=== PATIENT | female | born 1980 | race Caucasian/White ===

== ENCOUNTER 2023-07-18 22:37 | Observation (INO) ==
[2023-07-18] MEDS ORDERED: IOPAMIDOL 100 ML BOTTLE IV ONE (22:38)
[2023-07-18] MEDS ORDERED: FAMOTIDINE/PF 20 MG/2 ML VIAL IV ONE (22:44)
[2023-07-18] MEDS ORDERED: 0.9 % SODIUM CHLORIDE 1,000 ML IV ONE (22:44)
[2023-07-18] MEDS ORDERED: fentaNYL 100 MCG/2 ML VIAL IV ONE (22:47)
[2023-07-18 23:20] LABS: POC Calcium, Ionized 1.17 (1.16-1.32); POC Creatinine 0.8 (0.6-1.2); POC Potassium 3.6 (3.3-5.1)
[2023-07-18] MEDS: ONDANSETRON 4 MG/2 ML VIAL IV PRN (23:22)
[2023-07-18 23:27] LABS: Basophils # (Auto) 0.02 K/mcL (0.00-0.30); Basophils % (Auto) 0.2 % (0.0-2.0); Eosinophils # (Auto) 0.13 K/mcL (0.00-0.70); Eosinophils % (Auto) 1.5 % (0.0-7.0); Hematocrit 40.4 % (34.1-44.9); Lymphocytes # (Auto) 1.14 K/mcL (1.50-4.80); Lymphocytes % (Auto) 12.9 % (15.5-49.0); Mean Cell Volume 91.6 fL (80.0-100.0); Mean Corpuscular HGB Conc 34.7 g/dL (31.0-36.0); Mean Platelet Volume 10.2 fL (8.8-12.5); Monocytes # (Auto) 0.61 K/mcL (0.10-0.90); Monocytes % (Auto) 6.9 % (1.0-12.0); Neutrophils % (Auto) 78.3 % (38.0-78.0); Platelet Count 241 K/mcL (140-440); RBC 4.41 M/mcL (3.59-5.38); WBC 8.8 K/mcL (4.5-11.0)
[2023-07-19 00:09] LABS: ALT/SGPT 89 U/L (<40); AST/SGOT 206 U/L (<32); Albumin 3.9 gm/dL (3.2-5.2); Alkaline Phosphatase 83 U/L (39-117); Bilirubin,Direct 0.2 mg/dL (<0.3); Bilirubin,Total 0.6 mg/dL (0.1-1.0); Globulin 3.1 gm/dL (2.2-3.7)
[2023-07-19] MEDS ORDERED: HYDROmorphone 1 MG/ML SYRINGE IV PRN (01:12)
[2023-07-19 06:49] LABS: Basophils # (Auto) 0.01 K/mcL (0.00-0.30); Basophils % (Auto) 0.2 % (0.0-2.0); Eosinophils # (Auto) 0.15 K/mcL (0.00-0.70); Eosinophils % (Auto) 2.9 % (0.0-7.0); Hematocrit 39.2 % (34.1-44.9); Hemoglobin 13.2 g/dL (11.2-15.7); Lymphocytes # (Auto) 1.18 K/mcL (1.50-4.80); Mean Cell Volume 91.8 fL (80.0-100.0); Mean Corpuscular HGB Conc 33.7 g/dL (31.0-36.0); Mean Platelet Volume 10.2 fL (8.8-12.5); Monocytes # (Auto) 0.52 K/mcL (0.10-0.90); Monocytes % (Auto) 10.1 % (1.0-12.0); Neutrophils % (Auto) 63.6 % (38.0-78.0); Platelet Count 223 K/mcL (140-440); RBC 4.27 M/mcL (3.59-5.38); Red Cell Distribution Width 12.2 % (11.5-14.5); WBC 5.1 K/mcL (4.5-11.0)
[2023-07-19 07:35] LABS: ALT/SGPT 497 U/L (<40); AST/SGOT 945 U/L (<32); Albumin 3.6 gm/dL (3.2-5.2); Albumin/Globulin Ratio 1.3 (1.0-2.3); Alkaline Phosphatase 90 U/L (39-117); Bilirubin,Total 1.4 mg/dL (0.1-1.0); Blood Urea Nitrogen 11 mg/dL (6-20); Calcium 8.6 mg/dL (8.6-10.4); Carbon Dioxide 26 mmol/L (22-30); Chloride 103 mmol/L (96-108); Globulin 2.8 gm/dL (2.2-3.7); Glomerular Filtration Rate 106; Glucose 93 mg/dL (70-105)
[2023-07-19] MEDS ORDERED: ACETAMINOPHEN 1,000 MG/100 ML BAG IV ONE (09:10)
[2023-07-19] MEDS ORDERED: LACTATED RINGERS 1,000 ML IV SCH (11:15)
[2023-07-19] MEDS ORDERED: ONDANSETRON 4 MG/2 ML VIAL IV PRN (11:44)
[2023-07-19] MEDS ORDERED: HYDROmorphone 0.5 MG/0.5 ML SYRINGE IV PRN (11:47)
[2023-07-19] MEDS: DEXTROSE 5%-LR 1,000 ML IV SCH ×2 (14:09→22:43)
[2023-07-19] MEDS: ONDANSETRON 4 MG/2 ML VIAL IV PRN (14:42)
[2023-07-20] MEDS: DEXTROSE 5%-LR 1,000 ML IV SCH ×4 (01:16→22:29)
[2023-07-20 07:27] LABS: Hematocrit 39.3 % (34.1-44.9); Hemoglobin 13.3 g/dL (11.2-15.7); Mean Corpuscular HGB Conc 33.8 g/dL (31.0-36.0); Mean Platelet Volume 10.3 fL (8.8-12.5); Platelet Count 222 K/mcL (140-440); RBC 4.18 M/mcL (3.59-5.38); Red Cell Distribution Width 12.3 % (11.5-14.5); WBC 4.2 K/mcL (4.5-11.0)
[2023-07-20 08:05] LABS: ALT/SGPT 414 U/L (<40); AST/SGOT 248 U/L (<32); Albumin 3.7 gm/dL (3.2-5.2); Albumin/Globulin Ratio 1.3 (1.0-2.3); Alkaline Phosphatase 114 U/L (39-117); Bilirubin,Total 0.7 mg/dL (0.1-1.0); Blood Urea Nitrogen 6 mg/dL (6-20); Calcium 8.6 mg/dL (8.6-10.4); Carbon Dioxide 28 mmol/L (22-30); Chloride 104 mmol/L (96-108); Globulin 2.8 gm/dL (2.2-3.7); Glomerular Filtration Rate 106; Glucose 93 mg/dL (70-105)
[2023-07-21 06:12] LABS: Hematocrit 41.4 % (34.1-44.9); Hemoglobin 13.7 g/dL (11.2-15.7); Mean Cell Volume 95.4 fL (80.0-100.0); Mean Corpuscular HGB Conc 33.1 g/dL (31.0-36.0); Mean Platelet Volume 10.2 fL (8.8-12.5); Platelet Count 224 K/mcL (140-440); RBC 4.34 M/mcL (3.59-5.38); Red Cell Distribution Width 12.3 % (11.5-14.5); WBC 4.8 K/mcL (4.5-11.0)
[2023-07-21] MEDS: DEXTROSE 5%-LR 1,000 ML IV SCH ×2 (06:54→13:02)
[2023-07-21 07:18] LABS: ALT/SGPT 274 U/L (<40); AST/SGOT 113 U/L (<32); Albumin 3.5 gm/dL (3.2-5.2); Albumin/Globulin Ratio 1.1 (1.0-2.3); Alkaline Phosphatase 125 U/L (39-117); Bilirubin,Total 0.4 mg/dL (0.1-1.0); Blood Urea Nitrogen 6 mg/dL (6-20); Calcium 8.7 mg/dL (8.6-10.4); Carbon Dioxide 27 mmol/L (22-30); Chloride 106 mmol/L (96-108); Globulin 3.1 gm/dL (2.2-3.7); Glomerular Filtration Rate 106; Glucose 84 mg/dL (70-105)
== END 2023-07-21 14:04 | disposition home or self-care (01) ==
LOC: ED 22:37 → MEDSUR 22:37
PROVIDERS: ADMIT Surgery Surgical Critical Care; ATTEND Surgery Surgical Critical Care

== ENCOUNTER 2023-08-27 10:16 | Observation (INO) ==
[2023-08-21 10:06] LABS: Basophils # (Auto) 0.02 K/mcL (0.00-0.30); Basophils % (Auto) 0.4 % (0.0-2.0); Eosinophils # (Auto) 0.37 K/mcL (0.00-0.70); Eosinophils % (Auto) 7.2 % (0.0-7.0); Hematocrit 44.6 % (34.1-44.9); Hemoglobin 15.1 g/dL (11.2-15.7); Lymphocytes # (Auto) 1.66 K/mcL (1.50-4.80); Lymphocytes % (Auto) 32.3 % (15.5-49.0); Mean Cell Volume 92.9 fL (80.0-100.0); Mean Corpuscular HGB Conc 33.9 g/dL (31.0-36.0); Mean Platelet Volume 9.7 fL (8.8-12.5); Monocytes # (Auto) 0.59 K/mcL (0.10-0.90); Monocytes % (Auto) 11.5 % (1.0-12.0); Neutrophils % (Auto) 48.4 % (38.0-78.0); Platelet Count 270 K/mcL (140-440); WBC 5.1 K/mcL (4.5-11.0)
[2023-08-21 10:51] LABS: Blood Urea Nitrogen 11 mg/dL (6-20); Calcium 9.4 mg/dL (8.6-10.4); Carbon Dioxide 26 mmol/L (22-30); Chloride 101 mmol/L (96-108); Glomerular Filtration Rate 111; Glucose 93 mg/dL (70-105)
[~2023-08-27 10:16] MED LIST: IPRATROPIUM/ALBUTEROL 3 ML AMPUL.NEB NEB PRN
[2023-08-27] MEDS: SCOPOLAMINE 1 PATCH PATCH TOPICAL PRN (10:56)
[2023-08-27] MEDS ORDERED: ROCURONIUM 10 MG/ML ML IV ONE (12:49)
[2023-08-27] MEDS ORDERED: fentaNYL 100 MCG/2 ML VIAL ONE (12:49)
[2023-08-27] MEDS ORDERED: ONDANSETRON 4 MG/2 ML VIAL ONE (12:49)
[2023-08-27] MEDS ORDERED: PROPOFOL 200 MG/20 ML VIAL IV ONE (12:49)
[2023-08-27] MEDS: ceFAZolin 2 GM in DEXTROSE 5% IN WATER 50 ML IV SCH (12:54)
[2023-08-27] MEDS ORDERED: GLYCOPYRROLATE 0.2 MG/ML VIAL IV ONE (13:17)
[2023-08-27] MEDS: BUPIVACAINE W/EPI 0.25% 50 ML VIAL IJ ONE (13:36)
[2023-08-27] MEDS ORDERED: DEXMEDETOMIDINE HCL 200 MCG/2 ML VIAL ONE (13:48)
[2023-08-27] MEDS ORDERED: KETAMINE 50 MG/ML Syringe IV ONE (13:49)
[2023-08-27] MEDS ORDERED: DEXAMETHASONE 10 MG/ML VIAL ONE (13:52)
[2023-08-27] MEDS ORDERED: ROPIVACAINE HCL/PF 30 ML VIAL IJ ONE (14:37)
[2023-08-27] MEDS ORDERED: SUGAMMADEX SODIUM 200 MG/2 ML VIAL IV ONE (14:58)
[2023-08-27] MEDS ORDERED: HYDROmorphone 0.5 MG/0.5 ML SYRINGE IV PRN (15:51)
[2023-08-27] MEDS ORDERED: fentaNYL 100 MCG/2 ML VIAL IV PRN (15:51)
[2023-08-27] MEDS ORDERED: IPRATROPIUM/ALBUTEROL 3 ML AMPUL.NEB NEB PRN (15:51)
[2023-08-27] MEDS ORDERED: PROMETHAZINE 25 MG/ML VIAL IV PRN (15:51)
[2023-08-27] MEDS: MEPERIDINE 25 MG/ML VIAL IV PRN (16:01)
[2023-08-27] MEDS: oxyCODONE IR 5 MG TABLET PO PRN (16:44)
[2023-08-27] MEDS: DEXTROSE 5%-LR 1,000 ML IV SCH ×2 (16:48→19:52)
[2023-08-27] MEDS: ONDANSETRON 4 MG/2 ML VIAL IV PRN (16:54)
[2023-08-27] MEDS: LACTATED RINGERS 1,000 ML IV SCH (17:17)
[2023-08-27] MEDS: HYDROmorphone 0.5 MG/0.5 ML SYRINGE IV PRN (19:54)
[2023-08-28 06:28] LABS: Hematocrit 39.5 % (34.1-44.9); Hemoglobin 13.1 g/dL (11.2-15.7); Mean Cell Volume 93.2 fL (80.0-100.0); Mean Corpuscular HGB Conc 33.2 g/dL (31.0-36.0); Platelet Count 236 K/mcL (140-440); RBC 4.24 M/mcL (3.59-5.38); WBC 11.1 K/mcL (4.5-11.0)
[2023-08-28 07:23] LABS: ALT/SGPT 17 U/L (<40); AST/SGOT 32 U/L (<32); Albumin 3.6 gm/dL (3.2-5.2); Albumin/Globulin Ratio 1.3 (1.0-2.3); Alkaline Phosphatase 65 U/L (39-117); Bilirubin,Total 0.7 mg/dL (0.1-1.0); Blood Urea Nitrogen 8 mg/dL (6-20); Calcium 8.9 mg/dL (8.6-10.4); Carbon Dioxide 25 mmol/L (22-30); Chloride 105 mmol/L (96-108); Globulin 2.7 gm/dL (2.2-3.7); Glomerular Filtration Rate 111; Glucose 115 mg/dL (70-105)
[2023-08-28] MEDS: DEXTROSE 5%-LR 1,000 ML IV SCH (13:45)
[2023-08-29 06:10] LABS: Hemoglobin 13.8 g/dL (11.2-15.7); Mean Cell Volume 97.5 fL (80.0-100.0); Mean Corpuscular HGB Conc 32.1 g/dL (31.0-36.0); Mean Platelet Volume 9.8 fL (8.8-12.5); Platelet Count 233 K/mcL (140-440); RBC 4.41 M/mcL (3.59-5.38); Red Cell Distribution Width 12.3 % (11.5-14.5); WBC 8.9 K/mcL (4.5-11.0)
[2023-08-29 06:46] LABS: ALT/SGPT 28 U/L (<40); AST/SGOT 44 U/L (<32); Albumin 3.5 gm/dL (3.2-5.2); Albumin/Globulin Ratio 1.1 (1.0-2.3); Alkaline Phosphatase 70 U/L (39-117); Bilirubin,Total 0.6 mg/dL (0.1-1.0); Blood Urea Nitrogen 10 mg/dL (6-20); Carbon Dioxide 27 mmol/L (22-30); Chloride 101 mmol/L (96-108); Globulin 3.1 gm/dL (2.2-3.7); Glomerular Filtration Rate 106; Glucose 100 mg/dL (70-105)
[2023-08-29] MEDS: PROMETHAZINE 25 MG/ML VIAL IV PRN (13:59)
[2023-08-29] MEDS: fentaNYL 100 MCG/2 ML VIAL IV PRN (13:59)
[2023-08-29] MEDS: ACETAMINOPHEN 1,000 MG/100 ML BAG IV SCH (14:12)
[2023-08-29] MEDS: DEXTROSE 5%-LR 1,000 ML IV SCH (15:52)
[2023-08-29] MEDS: PANTOPRAZOLE 40 MG VIAL IV SCH (17:16)
[2023-08-29] MEDS: METOCLOPRAMIDE 10 MG/2 ML VIAL IV SCH (17:17)
[2023-08-29] MEDS: KETOROLAC 30 MG/ML VIAL IV SCH (17:17)
[2023-08-30 06:14] LABS: Basophils # (Auto) 0.01 K/mcL (0.00-0.30); Basophils % (Auto) 0.1 % (0.0-2.0); Eosinophils # (Auto) 0.38 K/mcL (0.00-0.70); Eosinophils % (Auto) 4.5 % (0.0-7.0); Hematocrit 39.6 % (34.1-44.9); Lymphocytes # (Auto) 0.99 K/mcL (1.50-4.80); Lymphocytes % (Auto) 11.8 % (15.5-49.0); Mean Cell Volume 95.7 fL (80.0-100.0); Mean Corpuscular HGB Conc 32.8 g/dL (31.0-36.0); Mean Platelet Volume 10.1 fL (8.8-12.5); Monocytes % (Auto) 8.3 % (1.0-12.0); Neutrophils % (Auto) 75.1 % (38.0-78.0); Platelet Count 220 K/mcL (140-440); RBC 4.14 M/mcL (3.59-5.38); Red Cell Distribution Width 12.3 % (11.5-14.5); WBC 8.4 K/mcL (4.5-11.0)
[2023-08-30 06:35] LABS: ALT/SGPT 38 U/L (<40); AST/SGOT 39 U/L (<32); Albumin 3.1 gm/dL (3.2-5.2); Albumin/Globulin Ratio 1.1 (1.0-2.3); Alkaline Phosphatase 76 U/L (39-117); Bilirubin,Total 0.6 mg/dL (0.1-1.0); Blood Urea Nitrogen 8 mg/dL (6-20); Calcium 8.1 mg/dL (8.6-10.4); Carbon Dioxide 22 mmol/L (22-30); Chloride 103 mmol/L (96-108); Globulin 2.7 gm/dL (2.2-3.7); Glomerular Filtration Rate 106; Glucose 102 mg/dL (70-105)
[2023-08-30] MEDS ORDERED: ACETAMINOPHEN 1,000 MG/100 ML BAG IV PRN (22:00)
== END 2023-08-31 14:00 | disposition home or self-care (01) ==
LOC: MEDSUR 10:16 → SUR 10:16 → MEDSUR 16:25
PROVIDERS: ADMIT Surgery Surgical Critical Care; ATTEND Surgery Surgical Critical Care